=== PATIENT | male | born 1955 | race Caucasian/White ===

== ENCOUNTER 2018-07-27 15:44 | Emergency (ER) | payer MEDICAID ==
[~2018-07-27] VITALS: Ht 175.3 cm; Wt 70.3 kg
[2018-07-27] MEDS ORDERED: diphenhydrAMINE HCL 25 MG CAPSULE ONE ×2 (16:51→16:58)
[2018-07-27] MEDS ORDERED: methylPREDNISolone SOD SUCC 125 MG/2ML VIAL ONE (16:51)
[2018-07-27] MEDS ORDERED: methylPREDNISolone SOD SUCC 125 MG/2ML VIAL IM ONE (17:00)
[2018-07-27] MEDS ORDERED: diphenhydrAMINE HCL 50 MG CAPSULE PO ONE (17:00)
[2018-07-27 17:05] VITALS: BP 148/89
== END 2018-07-27 17:24 | disposition home or self-care (01) ==
LOC: ER 15:47
DX: R21 Rash and other nonspecific skin eruption (principal); L30.9 Dermatitis, unspecified; F17.200 Nicotine dependence, unspecified, uncomplicated
CPT/HCPCS: 96372; 99283; A4606; J2930; Q0163 ×2

== ENCOUNTER 2024-12-04 16:55 | Emergency (ER) | payer MEDICARE, OTHER ==
[~2024-12-04] VITALS: Ht 175.3 cm; Wt 69.4 kg
[2024-12-04] MEDS ORDERED: LACTULOSE 10 G/15 ML UDC (PYXIS) ONE (17:23)
[2024-12-04] MEDS ORDERED: DIATR MEGLU/DIATRIZOATE SODIUM 120 ML BOTTLE (GASTROGRAPHIN) ONE (17:25)
[2024-12-04] MEDS: LACTULOSE 10 G/15 ML UDC (PYXIS) PO ONE (17:28)
[2024-12-04] MEDS: IV NS 0.9% 1,000 ML BAG IV ONE (17:59)
[2024-12-04] MEDS: DIATR MEGLU/DIATRIZOATE SODIUM 30 ML BOTTLE (GASTROGRAPHIN) PO ONE (17:59)
[2024-12-04 18:08] LABS: PLATELET COUNT (AUTO) 346 K/uL (150-450); RED BLOOD CELL COUNT(AUTO) 4.75 MIL/uL (4.5-6.0); RED CELL DISTRIBUTION WIDTH 14.8 % (11.5-15.0); WHITE BLOOD COUNT (AUTO) 7.5 K/uL (4.3-11.0)
[2024-12-04 18:17] LABS: CALCIUM, SERUM 9.0 mg/dL (8.5-10.1); CREATININE 0.8 mg/dL (0.6-1.3); SODIUM SERUM 135.0 mmol/L (136-145); UREA NITROGEN, BLOOD 10.0 mg/dL (7-18)
[2024-12-04 18:20] LABS: ASPARTATE AMINOTRANSFERASE 20.0 U/L (15-37); TOTAL PROTEIN, SERUM 7.1 g/dL (6.4-8.2)
[2024-12-04] MEDS ORDERED: MINERAL OIL 133 ML (PYXIS) 1 EA ENEMA RC ONE (20:17)
[2024-12-04] MEDS: MINERAL OIL 133 ML (PYXIS) 1 EA ENEMA RC ONE (20:24)
[2024-12-04] MEDS ORDERED: TAMS-12 PO ×2 (20:40→23:39)
[2024-12-04] MEDS ORDERED: LACT10SO58 PO ×2 (20:40→23:39)
[2024-12-05 03:15] VITALS: BP 135/87; TEMP 98.5; O2SAT 99
== END 2024-12-05 03:16 | disposition home or self-care (01) ==
LOC: ER 17:03
DX: K56.41 Fecal impaction (principal); R33.8 Other retention of urine; N40.1 Benign prostatic hyperplasia with lower urinary tract symptoms; F17.200 Nicotine dependence, unspecified, uncomplicated; R07.9 Chest pain, unspecified; Z87.2 Personal history of diseases of the skin and subcutaneous tissue
CPT/HCPCS: 36415; 51702; 51798; 71045; 74176; 80048; 80076; 85025; 96360; 99284; J7030; Q9963